=== PATIENT | female | born 1965 | race Caucasian/White ===

== ENCOUNTER 2017-12-15 16:38 | Emergency (ER) | payer OTHER ==
[~2017-12-15] VITALS: Ht 177.8 cm; Wt 113.4 kg
[~2017-12-15 16:38] MED LIST: CYCL10 PO; LEVSOD150 PO; LEVSOD75 PO
[2017-12-15 17:50] LABS: BASOPHILS ABSOLUTE AUTO 0.03 K/mm3 (0.00-0.23); BASOPHILS PERCENT AUTO 0 % (0-2); EOSINOPHILS ABSOLUTE AUTO 0.22 K/mm3 (0.00-0.68); EOSINOPHILS PERCENT AUTO 3 % (0-6); Hematocrit 36.7 % (33.0-51.0); Hemoglobin 12.2 g/dL (11.5-16.0); IMMATURE GRAN ABSOLUTE AUTO 0.04 K/mm3 (0.00-0.10); IMMATURE GRAN PERCENT AUTO 1 % (0-1); LYMPHOCYTES ABSOLUTE AUTO 2.68 K/mm3 (0.84-5.20); LYMPHOCYTES PERCENT AUTO 32 % (21-46); MONOCYTES ABSOLUTE AUTO 0.47 K/mm3 (0.16-1.47); MONOCYTES PERCENT AUTO 6 % (4-13); Mean Corpuscular HGB 31.9 pg (26.0-34.0); Mean Corpuscular HGB Conc 33.2 g/dL (31.5-36.5); Mean Corpuscular Volume 96 fL (80-100); Mean Platelet Volume 9.1 fL (9.1-12.4); NEUTROPHILS ABSOLUTE AUTO 4.93 K/mm3 (1.96-9.15); NEUTROPHILS PERCENT AUTO 59 % (41-73); Platelet Count 214 K/mm3 (150-400); RDW Coefficient Variation 11.7 % (11.7-14.2); RDW Standard Deviation 40.6 fL (35.1-46.3); Red Blood Cell Count 3.83 M/mm3 (3.80-5.20); White Blood Cell Count 8.37 K/mm3 (4.00-11.30)
[2017-12-15 18:03] LABS: International Normalized Ratio 0.98; Prothrombin Time Results 10.1 Sec (9.7-11.5)
[2017-12-15 18:13] LABS: Alanine Aminotransfer (ALT/SGP 35 U/L (12-78); Albumin, Blood 3.4 g/dL (3.4-5.0); Albumin/Globulin Ratio 1.1 (0.8-1.8); Alk Phos 66 U/L (50-136); Anion Gap 8 mmol/L (6-16); Aspartate Aminotrans (AST/SGOT 35 U/L (12-37); Bilirubin, Total 0.4 mg/dL (0.1-1.0); Blood Urea Nitrogen 17 mg/dL (8-24); CO2, Blood 23 mmol/L (21-32); Calcium, Blood 8.2 mg/dL (8.5-10.1); Chloride, Blood 106 mmol/L (98-108); Creatinine, Blood 0.77 mg/dL (0.40-1.00); Glomerular Filtration Rate >60 (60-); Glucose, Blood 160 mg/dL (70-99); Potassium, Blood 3.8 mmol/L (3.5-5.5); Sodium, Blood 137 mmol/L (136-145); Total Protein, Blood 6.4 g/dL (6.4-8.2)
== END 2017-12-15 19:40 | disposition short-term general hospital (02) ==
LOC: ER 16:38
PROVIDERS: Emergency Medicine
DX: S22.41XA Multiple fractures of ribs, right side, initial encounter for closed fracture (principal); S42.021A Displaced fracture of shaft of right clavicle, initial encounter for closed fracture; S00.81XA Abrasion of other part of head, initial encounter; S09.90XA Unspecified injury of head, initial encounter; Z88.2 Allergy status to sulfonamides; Z79.899 Other long term (current) drug therapy; Z87.891 Personal history of nicotine dependence; V23.4XXA Motorcycle driver injured in collision with car, pick-up truck or van in traffic accident, initial encounter
CPT/HCPCS: 51702; 70450; 71045; 71260; 72125; 74177; 80053; 83690; 85025; 85610; 86850; 86900; 86901; 96361; 96374; 96375; 99285-25; J1170; J3010; J7030; Q9967

== ENCOUNTER 2018-05-28 06:54 | Day surgery (SDC) | payer OTHER ==
[~2018-05-28] VITALS: Ht 177.8 cm; Wt 104.8 kg
[~2018-05-28 06:54] MED LIST changes: +ASPI325 PO; +BUPR150ER PO
--- NOTE | 2018-05-28 07:35 | NUR ---
Ambulatory in Day Surgery Patient states colon prep results clear. History, Chart, Medications and Allergies reviewed before start of procedure. Patient confirms NPO status and agrees with scheduled surgery. Patient States Post-Procedure ride home has been arranged.
--- NOTE | 2018-05-28 08:23 | NUR ---
05/28/18 0823 Alis Bae History, Chart, Medications and Allergies reviewed before start of procedure.PATIENT DETERMINED TO BE ASA APPROPRIATE FOR PROPOFOL SEDATION PRIOR TO START OF PROCEDURE BY .MONITOR INTACT WITH CONTINUOUS PULSE OXIMETRY AND INTERMITTENT BP.3-LEAD EKG REVIEWED WITH PHYSICIAN PRIOR TO START OF PROCEDURE.O2 VIA N/C INTACT THROUGHOUT SEDATION/PROCEDURE.
--- NOTE | 2018-05-28 08:39 | NUR ---
FROM ENDO 1 TO STEP VSS WAKING UP GIVEN WATER PER REQUEST.
--- NOTE | 2018-05-28 08:56 | NUR ---
PATIENT GETTING DRESSED AFTER DISCHARGE INSTRUCTIONS GONE OVER WITH AND IV REMOVED
--- NOTE | 2018-05-28 09:01 | NUR ---
Discharge instructions reviewed with patient. Patient verbalizes understanding. Copy given to patient to take home. Discharged via wheelchair to private car for ride home.
== END 2018-05-28 22:44 | disposition home or self-care (01) ==
LOC: ORSCMMR 06:54 → ORD 08:00 → ORSCMMR 22:44
PROVIDERS: Internal Medicine Gastroenterology
PROC: 0DBP8ZX Excision of Rectum, Via Natural or Artificial Opening Endoscopic, Diagnostic (ICD-10-PCS; principal; 2018-05-28 08:00)
PROC: 0DBM8ZX Excision of Descending Colon, Via Natural or Artificial Opening Endoscopic, Diagnostic (ICD-10-PCS; principal; 2018-05-28 08:00)
PROC: 0DBN8ZX Excision of Sigmoid Colon, Via Natural or Artificial Opening Endoscopic, Diagnostic (ICD-10-PCS; principal; 2018-05-28 08:00)
DX: Z12.11 Encounter for screening for malignant neoplasm of colon (principal); K63.5 Polyp of colon; K62.1 Rectal polyp; F32.9 Major depressive disorder, single episode, unspecified; E03.9 Hypothyroidism, unspecified; K64.8 Other hemorrhoids; Z79.82 Long term (current) use of aspirin; Z79.899 Other long term (current) drug therapy
CPT/HCPCS: 88305; J7120

== ENCOUNTER → 2019-01-02 | Outpatient (CLI) | payer OTHER | END | disposition home or self-care (01) | LOC: PLD 13:39 → LAB SHORT 13:39 | DX: L57.0 Actinic keratosis (principal) | CPT/HCPCS: 88305 ==

== ENCOUNTER → 2019-05-09 | Outpatient (CLI) | payer OTHER | END | disposition home or self-care (01) | LOC: LAB 12:54 → LAB SHORT 12:54 | DX: N39.0 Urinary tract infection, site not specified (principal) | CPT/HCPCS: 87086 ==

== ENCOUNTER → 2019-12-09 | Outpatient (CLI) | payer OTHER ==
[2019-12-09 18:56] LABS: Free Thyroxine 1.17 ng/dL (0.70-1.60)
[2019-12-09 18:57] LABS: Thyroid Stimulating Hormone 2.12 uIU/mL (0.360-4.800)
== END ==
LOC: LAB 13:26 → LAB SHORT 13:26
PROVIDERS: Hospitalist
DX: E03.9 Hypothyroidism, unspecified (principal)
CPT/HCPCS: 84439; 84443

== ENCOUNTER → 2020-10-27 | Outpatient (CLI) | payer OTHER | END | disposition home or self-care (01) | LOC: LAB SHORT 14:25 → LAB 14:25 | DX: N39.0 Urinary tract infection, site not specified (principal) | CPT/HCPCS: 87077; 87086; 87186 ==

== ENCOUNTER → 2020-11-29 | Outpatient (CLI) | payer OTHER ==
[2020-11-29 20:28] LABS: Free Thyroxine 1.08 ng/dL (0.70-1.60); Thyroid Stimulating Hormone 0.701 uIU/mL (0.360-4.800)
== END | disposition home or self-care (01) ==
LOC: LAB SHORT 16:45 → LAB 16:45
PROVIDERS: Hospitalist
DX: E03.9 Hypothyroidism, unspecified (principal); R39.15 Urgency of urination
CPT/HCPCS: 84439; 84443; 87086

== ENCOUNTER → 2022-04-11 | Outpatient (CLI) | payer OTHER ==
[2022-04-11 18:50] LABS: Free Thyroxine 1.02 ng/dL (0.70-1.60)
[2022-04-11 18:54] LABS: Thyroid Stimulating Hormone 0.758 uIU/mL (0.360-4.800); Triiodothyronine, Free 2.44 pg/mL (2.18-3.98)
== END | disposition home or self-care (01) ==
LOC: LAB SHORT 15:35
PROVIDERS: Hospitalist
DX: E03.9 Hypothyroidism, unspecified (principal)
CPT/HCPCS: 84439; 84443; 84481

== ENCOUNTER 2025-02-20 20:49 | Emergency (ER) | payer OTHER ==
[~2025-02-20] VITALS: Ht 177.8 cm; Wt 120.7 kg
[~2025-02-20 20:49] MED LIST changes: -OXYB5 PO; -OXYC5 PO
[2025-02-20] MEDS ORDERED: Morphine Sulfate 4 MG/1 ML Injection IV ONE (21:15)
[2025-02-20 21:18] LABS: Source, Urine Clean Catch
[2025-02-20 21:21] LABS: Color, Urine Amber (P-Yellow); Glucose Qualitative, Urine Neg (Neg); Ketones, Urine Neg (Neg); Leukocyte Esterase, Urine 3+ (Neg); Protein, Urine 2+ (Neg); Specific Gravity, Urine 1.010 (1.003-1.022); Urobilinogen, Urine 3+ (Normal)
[2025-02-20 21:22] LABS: BASOPHILS ABSOLUTE AUTO 0.02 K/mm3 (0.00-0.23); BASOPHILS PERCENT AUTO 0 % (0-2); EOSINOPHILS ABSOLUTE AUTO 0.06 K/mm3 (0.00-0.68); EOSINOPHILS PERCENT AUTO 1 % (0-6); Hematocrit 39.0 % (33.0-51.0); Hemoglobin 13.2 g/dL (11.5-16.0); IMMATURE GRAN ABSOLUTE AUTO 0.03 K/mm3 (0.00-0.10); IMMATURE GRAN PERCENT AUTO 0 % (0-1); LYMPHOCYTES ABSOLUTE AUTO 2.07 K/mm3 (0.84-5.20); LYMPHOCYTES PERCENT AUTO 19 % (21-46); MONOCYTES ABSOLUTE AUTO 0.81 K/mm3 (0.16-1.47); MONOCYTES PERCENT AUTO 7 % (4-13); Mean Corpuscular HGB Conc 33.8 g/dL (31.5-36.5); Mean Corpuscular Volume 93 fL (80-100); NEUTROPHILS ABSOLUTE AUTO 8.21 K/mm3 (1.96-9.15); NEUTROPHILS PERCENT AUTO 73 % (41-73); NRBC ABSOLUTE 0.00 K/mm3 (0.00-0.02); NRBC Auto 0.0 /100 WBC (0.0-0.2); Platelet Count 244 K/mm3 (150-400); RDW Coefficient Variation 11.9 % (11.7-14.2); RDW Standard Deviation 41.0 fL (35.1-46.3)
[2025-02-20 21:31] LABS: Bilirubin, Urine 3+ (Neg); White Blood Cells, Urine TNTC /hpf (0-5)
[2025-02-20 21:33] LABS: Alanine Aminotransfer (ALT/SGP 31.0 U/L (12-78); Albumin, Blood 4.1 g/dL (3.4-5.0); Albumin/Globulin Ratio 1.2 (0.8-1.8); Anion Gap 11.0 mmol/L (3-11); Aspartate Aminotrans (AST/SGOT 16.0 U/L (12-37); Bilirubin, Total 0.8 mg/dL (0.1-1.0); Blood Urea Nitrogen 13.0 mg/dL (8-24); CO2, Blood 23.0 mmol/L (21-32); Calcium, Blood 9.4 mg/dL (8.5-10.1); Chloride, Blood 105.0 mmol/L (98-108); Creatinine, Blood 0.67 mg/dL (0.40-1.00); Globulin, Blood 3.5 g/dL (2.2-4.0); Glucose, Blood 134.0 mg/dL (70-99); Potassium, Blood 4.1 mmol/L (3.5-5.5); Sodium, Blood 135.0 mmol/L (136-145); Total Protein, Blood 7.6 g/dL (6.4-8.2)
[2025-02-20] MEDS ORDERED: CefTRIAXone Sodium 1,000 MG in NS 100 ML IV ONE (23:25)
[2025-02-20] MEDS ORDERED: HYDROmorphone HCl/Pf 1MG SYR IV ONE (23:30)
[2025-02-21] MEDS ORDERED: HYDROmorphone HCl/Pf 1MG SYR IV ONE (02:00)
[2025-02-21] MEDS ORDERED: RX Prepack 6 Tabs Oxycodone 5mg UD ONE (02:00)
[2025-02-21] MEDS ORDERED: OXYC5 PO (02:00)
[2025-02-21] MEDS ORDERED: OXYB5 PO (02:00)
[2025-02-21 03:00] VITALS: BP 126/97
== END 2025-02-21 03:06 | disposition home or self-care (01) ==
LOC: ER 20:49
PROVIDERS: Student in an Organized Health Care Education/Training Program
DX: N39.0 Urinary tract infection, site not specified (principal); N32.89 Other specified disorders of bladder; Q62.31 Congenital ureterocele, orthotopic; D18.03 Hemangioma of intra-abdominal structures; Z87.891 Personal history of nicotine dependence
CPT/HCPCS: 74177; 76856; 80053; 81001; 85025; 87086; 96365-59; 96375; 96376; 99285-25; A9270; J0696; J1171; J2270; Q9967

== ENCOUNTER → 2025-02-20 | Outpatient (CLI) | payer OTHER ==
[~2025-02-20] MED LIST changes: +HYDR1TAB94 PO; +IBUP800 PO; +OXYB5 PO; +OXYC5 PO
== END | disposition home or self-care (01) ==
LOC: LAB 14:24 → LAB SHORT 14:24
DX: N39.0 Urinary tract infection, site not specified (principal)
CPT/HCPCS: 87086

== ENCOUNTER 2025-02-27 10:59 | Day surgery (SDC) | payer OTHER ==
[~2025-02-27] VITALS: Ht 177.8 cm; Wt 119.5 kg
[~2025-02-27 10:59] MED LIST changes: +Bupivacaine 0.5% W/EPI 1:200000 SDV 30 ML Vial ONE; +OXYB5 PO; +OXYC5 PO
[2025-02-27] MEDS ORDERED: CeFAZolin Sodium 2,000 MG VIAL ONE (12:01)
[2025-02-27] MEDS ORDERED: Midazolam HCl 1MG / ML 2ML Vial ONE (12:46)
[2025-02-27] MEDS ORDERED: FentaNYL Citrate 50 MCG/ML 2 ML Injection ONE ×2 (12:46→14:09)
[2025-02-27] MEDS ORDERED: Ondansetron HCl 2 MG / ML 2ML Vial ONE (13:41)
--- NOTE | 2025-02-27 14:10 | NUR ---
02/27/25 1410 SHRADDHA PAEZ PT REPORTS PAIN 7/10 AT THIS TIME. MEDS PER ANESTHESIA ORDERS, SEE EMAR
[2025-02-27] MEDS ORDERED: HYDROmorphone HCl/Pf 1MG SYR ONE (14:25)
[2025-02-27 14:43] VITALS: BP 124/77
--- NOTE | 2025-02-27 14:46 | NUR ---
02/27/25 0596 SHRADDHA PAEZ PT SNACKING ON CHEESE, AND DRINKING SODA. DENIES NAUSEA. GLASSES ON. PLAN TO GIVE PAIN PILL, PER EMAR
[2025-02-27] MEDS ORDERED: HYDROcodone 5-APAP 325 TAB ONE (14:47)
[2025-02-27] MEDS ORDERED: Ketorolac Tromethamine 30mg Vial ONE (15:32)
== END 2025-02-27 11:52 | disposition home or self-care (01) ==
LOC: ORSCSDS 10:59
PROVIDERS: Podiatrist Foot & Ankle Surgery
PROC: 0LQP0ZZ Repair Left Lower Leg Tendon, Open Approach (ICD-10-PCS; principal; 2025-02-27 12:30)
DX: M76.72 Peroneal tendinitis, left leg (principal); Z87.891 Personal history of nicotine dependence; Z68.37 Body mass index [BMI] 37.0-37.9, adult
CPT/HCPCS: A6253; A9270; J0690; J1171; J1885; J2250; J2405; J2704; J3010; J7120